=== PATIENT | female | born 1975 | race Caucasian/White ===

== ENCOUNTER → 2016-11-28 | Outpatient (CLI) | payer SELFPAY ==
[~2016-11-28] MED LIST: GABAPENTIN100 M1 PO; LORTAB 5/500 501 TAB PO; ULTRAM50 MG PO; ZOLOFT100 MG PO
--- NOTE | 2016-11-28 15:10 | RADIOLOGY REPORT PS360 ---
HIP RT 2-3V W/PELVIS IF PERFOR HISTORY: HIP PAIN COMPARISON: None FINDINGS: No fracture or dislocation is evident. No significant degenerative change. No lytic or blastic change. Unremarkable soft tissues IMPRESSION: Negative hip
--- NOTE | 2016-11-28 17:14 | RADIOLOGY REPORT PS360 ---
US PELVIS-TRANSVAGINAL ONLY HISTORY: RLQ PAIN COMPARISON: None FINDINGS: The uterus is retroverted and measures 6 x 3.6 x 4.2 cm with a combined endometrial thickness of 4 mm. The left ovary is 3 x 2 cm and contains a 1 cm cyst. The right ovary is 3 x 2.7 cm. There is a 2.4 cm area of heterogeneous echogenicity in the right ovary consistent with hemorrhagic cyst. Small amount fluid in the cul-de-sac. IMPRESSION: 1. 2.4 cm hemorrhagic cyst of the right ovary. 2. 1 cm cyst of the left ovary. 3. Retroverted uterus
== END ==
LOC: RAD 14:24
DX: R10.31 Right lower quadrant pain (principal); M25.551 Pain in right hip